=== PATIENT | male | born 1955 | race Two or more races ===

== ENCOUNTER → 2022-10-11 | Emergency (ER) | payer OTHER ==
[~2022-10-11] VITALS: Ht 170.2 cm; Wt 75.3 kg
[~2022-10-11] MED LIST: APRESOLINE 10MG10 MG PO; GLIPIZIDE XL2.5 MG PO; QBRELIS1 MG/1 ML PO
== END | disposition home or self-care (01) ==
LOC: ER 09:31
DX: G44.309 Post-traumatic headache, unspecified, not intractable (principal); I10 Essential (primary) hypertension; E11.9 Type 2 diabetes mellitus without complications; Z79.84 Long term (current) use of oral hypoglycemic drugs